=== PATIENT | male | born 1980 ===

== ENCOUNTER 2019-01-08 13:04 | Emergency (ER) | payer SELFPAY ==
[2019-01-08 13:12] VITALS: BP 136/83
--- NOTE | 2019-01-08 13:15 | Emergency Department Report ---
Chief Complaint: Headache Stated Complaint: HEAD PAIN ON RIGHT SIDE Time Seen by Provider: 01/08/19 13:11 - HPI History of Present Illness: This is a 38 y.o. male that presents with headache from a fall last Monday. Patient reports +loc after fall. Unsure of what really happened. Family witnessed fall in bathroom and told patient he hit occipital head. - ROS Review of Systems: Vital Signs 01/08/19 13:11 Temperature 98.7 F Pulse Rate 78 Respiratory 18 Rate Blood Pressure 136/83 O2 Sat by Pulse 98 Oximetry MSE screening note: Focused history and physical exam performed. Due to findings the following was ordered: CT of head. Main ED for further evaluation. ED Disposition for MSE Condition: Stable
--- NOTE | 2019-01-08 14:09 | Cat Scan Report ---
CT HEAD WITHOUT CONTRAST: HISTORY: Syncopal episode, loss of consciousness. TECHNIQUE: Sequential 2.5mm CT images. COMPARISON: none. FINDINGS: Cerebral Parenchyma: Within normal limits. Cerebellum: Within normal limits. Brainstem: Within normal limits. Ventricles: Normal. Sella: Normal. Extra-axial spaces: Normal. Basal Cisterns: Normal. Intracranial Hemorrhage: None. Midline Shift: None. Calvarium: Normal. Sinuses: Normal. Mastoid Air Cells: Normal. Visualized Orbits: Normal. IMPRESSION: Cranial CT scan within normal limits.
[2019-01-08] MEDS ORDERED: TORADOL IM ONE (16:23)
--- NOTE | 2019-01-08 16:23 | Emergency Department Report ---
Head Injury w/o Laceration - HPI Chief Complaint: Headache Stated Complaint: HEAD PAIN ON RIGHT SIDE Time Seen by Provider: 01/08/19 13:11 Occurred When: Before Yesterday Mechanism: Other Other History: Ritchie is a 38-year-old male comes to the ER complaining that he had a seizure one week ago. He states the seizure was noted by his older sister. The older sister is not present. A girlfriend is present at bedside. When asked what the sister reported to him saying he said his eyes rolled back in his head and he fell out and slept the rest of the night. He states that he does smoke cigarettes. He denies alcohol and drugs. He states that he has had seizures in the past but they are few and far between and he does not know what causes them. He's been on no medications. He states that when he gets upset this tends to occur. Father is alive and well living in [place]. Mother has of end-stage renal disease. Patient comes in a week after this episode because he's had intermittent sharp headache to the right side of his head and his girlfriend was concerned. ED General PMH - Family History Significant Family History: no pertinent family hx - Social History Smoking Status: Current Every Day Smoker ED Neuro ROS - Review of Systems Constitutional: denies: no symptoms reported, see HPI, chills, diaphoresis, fever, malaise, weakness, other Eyes (ROS): denies: no symptoms reported, see HPI, blindness, blurred vision, vision change, drainage, decreased acuity, foreign body sensation, inflammation, pain, photophobia, previous injury, shadows, tunnel vision, contact lenses, glasses, other Ears, Nose, Mouth, Throat: denies: no symptoms reported, see HPI, ear pain, ear discharge, nose pain, nose discharge, epistaxis, mouth pain, mouth swelling, loose teeth, throat pain, throat swelling Respiratory: denies: no symptoms reported, see HPI, cough, orthopnea, short of breath, stridor, wheezing, other Cardiology: denies: no symptoms reported, see HPI, chest pain, edema, palpitations, syncope, other Gastrointestinal/Abdominal: denies: no symptoms reported, see HPI, abdominal pain, constipation, diarrhea, nausea, vomiting, other Genitourinary: no symptoms reported, see HPI, discharge, dysuria, frequency, hematuria, pain, other Musculoskeletal: denies: no symptoms reported, see HPI, back pain, gout, joint pain, joint swelling, muscle pain, muscle stiffness, neck pain, other Skin: denies: no symptoms reported, see HPI, change in color, change in hair/nails, dryness, lesions, lumps, rash, other Neurological: see HPI, headache Endocrine: denies: no symptoms reported, see HPI, excessive sweating, flushing, intolerance to cold, intolerance to heat, increased hunger, increased thirst, increased urine, unexplained weight gain, unexplained weight loss, other Hematologic/Lymphatic: denies: no symptoms reported, see HPI, anemia, blood clots, easy bleeding, easy bruising, swollen glands, other Head Injury W/O Lac Exam - Exam General: Vital signs noted. No distress. Alert and acting appropriately. Head: Yes Pupils are PERRL, No Hemotympanum, No Hematoma/Ecchymosis, No Epistaxis, No Stepoff/Deformity, No Laceration, No Abrasion Chest, Abd, & Ext: Yes Clear Lung Sounds, Yes Regular Heart Rhythm, No Neck Pain, No Chest Injury/Pain, No Heart Murmur, No Abdominal Tenderness, No Back Tenderness, No Extremity Injury Neuroligical (Head Inj W/O Lac: Yes Normal Speech, Yes Normal Gait, No Lethargy, No Disorientation, No Focal Numbness, No Focal Weakness ED Disposition Clinical Impression: Headache, History of seizure Disposition: TO HOME OR SELFCARE Is pt being admited?: No Does the pt Need Aspirin: No Condition: Stable Instructions: Recurrent Seizures Adult (ED) Additional Instructions: DIET TOLERATED MEDS ORDERED TODAY IN ER FOLLOW INSTRUCTIONS ON THE BOTTLE FOLLOW UP PCP WITHIN 48 HOURS TO ENSURE YOU ARE GETTING BETTER ACTIVITY TOLERATED MOTRIN OR TYLENOL FOR PAIN OR FEVER RETURN TO THE ER FOR WORSENING SYMPTOMS NOT RELIEVED BY YOUR MEDICATIONS. Referrals: RYLAND EDWARDS MD [Referring] - 3-5 Days [facility] [Outside] - 3-5 Days Time of Disposition: 16:22
[2019-01-08] MEDS ORDERED: FLAGYL PO ONE (16:49)
[2019-01-08 18:37] LABS: Bilirubin,Urine NEG (Negative); Blood,Urine NEG (Negative); Color,Urine Yellow (Yellow); Mucus,Urine FEW /HPF; Protein,Urine <15 mg/dL mg/dL (Negative)
== END 2019-01-08 17:27 | disposition home or self-care (01) ==
LOC: ED 13:04
DX: R56.9 Unspecified convulsions (principal); F17.200 Nicotine dependence, unspecified, uncomplicated
CPT/HCPCS: 70450; 81001; 87591; 96372; 99284; J1885